=== PATIENT | male | born 1995 | race Caucasian/White ===

== ENCOUNTER 2020-03-23 18:36 | Emergency (ER) | payer OTHER ==
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
[2020-03-23] MEDS ORDERED: fentaNYL 100 MCG/2 ML SDV IVPUSH ONE (18:56)
[2020-03-23 19:06] LABS: PTT,PARTIAL THROMBOPLSTIN TIME 21.8 SEC (22.0-34.0)
[2020-03-23 19:07] LABS: CHLORIDE,CL 99 mmol/L (98-107); SODIUM,NA 137 mmol/L (136-145)
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
[2020-03-23] MEDS ORDERED: Lidocaine 1% 30 ML SDV INJECT ONE (19:52)
[2020-03-23] MEDS ORDERED: Bacitracin Oint 1 GM U/D Packet TOP ONE (20:22)
[2020-03-23] MEDS ORDERED: Sodium Chloride 0.9% 1,000 ML IV ONE (20:39)
[2020-03-23] MEDS ORDERED: Iopamidol 612 MG/ML 100 ML Bottle IVPUSH ONE (21:00)
[2020-03-23] MEDS ORDERED: Doxycycline Monohydrate 100 MG Cap PO ONE (21:22)
[2020-03-23] MEDS ORDERED: Potassium Chloride 10 MEQ Tab.ER PO ONE (21:22)
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
== END 2020-03-23 22:37 ==
LOC: DL.ED 18:36
DX: S36.116A Major laceration of liver, initial encounter (principal); S81.811A Laceration without foreign body, right lower leg, initial encounter; S61.512A Laceration without foreign body of left wrist, initial encounter; S90.01XA Contusion of right ankle, initial encounter; S00.01XA Abrasion of scalp, initial encounter; Z20.828 Contact with and (suspected) exposure to other viral communicable diseases; Z88.1 Allergy status to other antibiotic agents; V89.2XXA Person injured in unspecified motor-vehicle accident, traffic, initial encounter
CPT/HCPCS: 12002; 36415; 71045; 72020; 72170; 73100; 73590; 74160; 80053; 80305; 80307; 81001; 82150; 83690; 85025; 85610; 85730; 87635; 96374; 99285; A9270; J2001; J3010; J7030; Q9967; U0002